=== PATIENT | female | born 1990 | race Caucasian/White ===

== ENCOUNTER 2016-12-30 15:19 | Emergency (ER) | payer MEDICAID ==
[~2016-12-30] VITALS: Ht 157.5 cm; Wt 61.0 kg
[~2016-12-30 15:19] MED LIST: AZIT250T43 PO
[2016-12-30 15:25] VITALS: BP 111/80; PULSE 87; RESP 16; TEMP 98.9; O2SAT 96
--- NOTE | 2016-12-30 16:34 | PD ---
HPI Chief Complaint: Oral / Dental Pain or Problem Time Seen by Provider: 16:28 Travel History International Travel<30 days: No Contact w/Intl Traveler<30days: No Traveled to known affect area: No History of Present Illness HPI 26-year-old female smoker here presents for evaluation of dental pain. Symptoms started 1 week ago. Pain is an aching pain is constant and worse with chewing. Seems to be localized to the mandibular molars on the left and right side. No fevers or chills. No other complaints. PFSH Past Medical History Anemia: Yes Asthma: Yes Blood Disorders: No Cancer: No Cardiovascular Problems: No Chemotherapy: No Diabetes: No Diminished Hearing: No Endocrine: No Genitourinary: No Immune Disorder: No Implanted Vascular Access Dvce: No Musculoskeletal: No Neurologic: No Psychiatric: No Reproductive: No Respiratory: No Immunizations Current: Yes Sickle Cell Disease: No Thyroid Disease: No Tetanus Vaccination: < 5 Years Influenza Vaccination: Yes PNEUMOCCOCAL Vaccine (Year): 2 ?: Unknown LMP: 12/25/16 : 2 Para: 1 Miscarriage: 0 : 0 Past Surgical History Section: Yes Gynecologic Surgery: Yes () Social History Alcohol Use: Yes (SOCIAL) Tobacco Use: Yes (1 ppd) Substance Use: No Allergies-Medications (Allergen,Severity, Reaction): Coded Allergies: Penicillin (Verified Allergy, Severe, rash, 12/30/16) Reported Meds & Prescriptions Reported Meds & Active Scripts Active Peridex Liq (Chlorhexidine Gluconate (Mouth) Liq) 0.12% Soln 15 Ml SWISH-SPIT BID Magic Mouthwash Adult Liq (Multi-Ingredient Mouthwash/Gargle) 120 Ml Susp 10 Ml SWISH-SPIT ACHS Each 5mL contains: Nystatin 200,000units, Diphenhydramine 4.25mg, Viscous Lidocaine 10mg, Greco syrup 0.8 mL Clindamycin (Clindamycin HCl) 300 Mg Cap 300 Mg PO TID 7 Days Azithromycin 250 Mg Tab 250 Mg PO DAILY Review of Systems General / Constitutional: No: Fever, Chills HENT: Positive: Dental Difficulties Physical Exam Narrative GENERAL: Well-nourished female in no acute distress SKIN: Warm and dry. HEAD: Atraumatic. Normocephalic. EYES: Pupils equal and round. No scleral icterus. No injection or drainage. ENT: No nasal bleeding or discharge. Mucous membranes pink and moist. Multilevel dental decay. Tender to palpation along the mandibular gum line. No gingival edema, no facial edema, no sublingual edema, no trismus. NECK: Trachea midline. No JVD. No lymphadenopathy. No submandibular edema. CARDIOVASCULAR: Regular rate and rhythm. No murmur appreciated. RESPIRATORY: No accessory muscle use. Clear to auscultation. Breath sounds equal bilaterally. Data Data Last Documented VS Vital Signs Date Time Temp Pulse Resp B/P Pulse Ox O2 Delivery O2 Flow Rate FiO2 12/30/16 15:25 98.9 87 16 111/80 96 Orders Ed Urine Pregnancytest Poc (12/30/16 16:32) MDM Medical Decision Making Medical Screen Exam Complete: Yes Emergency Medical Condition: Yes Medical Record Reviewed: Yes Interpretation(s) Urine test negative Differential Diagnosis Dental caries, pulpitis, pericoronitis, periodontal abscess Narrative Course Examination reveals dental caries. The patient is encouraged to follow-up with a dentist in the quit smoking. She is allergic her to penicillin. She is being discharged with peridex, Magic mouthwash, clindamycin. Diagnosis Primary Impression: Dental caries Referrals: Dentist Additional Instructions: Follow-up with a dentist. Medication as prescribed. Tylenol or Motrin for discomfort. Quit smoking. Return for any emergent medical conditions. Med/Other Pt SpecificInfo: Prescription(s) given Scripts Chlorhexidine Gluconate (Mouth) Liq (Peridex Liq)0.12% Soln15 Ml SWISH-SPIT BID #473 ML Ref 0 Prov:Yoshi Kaur MD 12/30/16 Pgmkuxrx-Xgbtnmrsdouylgj-Kltzmvcgr Liq (Magic Mouthwash Adult Liq)120 Ml Susp10 Ml SWISH-SPIT ACHS #120 ML Ref 0 Each 5mL contains: Nystatin 200,000units, Diphenhydramine 4.25mg, Viscous Lidocaine 10mg, Greco syrup 0.8 mL Prov:Yoshi Kaur MD 12/30/16 Clindamycin 300 Mg [id number] Mg PO TID 7 Days Ref 0 Prov:Yoshi Kaur MD 12/30/16 Disposition: 01 DISCHARGE HOME Condition: Stable Wilber Andersen Dec 30, 2016 16:34
[2016-12-30] MEDS ORDERED: MAGICADU2 SWISH-SPIT (16:36)
[2016-12-30] MEDS ORDERED: PERI0.126 SWISH-SPIT (16:36)
[2016-12-30] MEDS ORDERED: CLIN1CAP6 PO (16:36)
== END 2016-12-30 16:51 | disposition home or self-care (01) ==
LOC: PHED 15:19
DX: K02.9 Dental caries, unspecified (principal); F17.210 Nicotine dependence, cigarettes, uncomplicated
CPT/HCPCS: 84703; 99282

== ENCOUNTER 2017-09-21 13:55 | Emergency (ER) | payer MEDICAID ==
[~2017-09-21] VITALS: Ht 157.5 cm; Wt 70.0 kg
[~2017-09-21 13:55] MED LIST changes: +CLIN300C5 PO; +MAGICADU2 SWISH-SPIT; +PERI0.126 SWISH-SPIT
[2017-09-21 13:57] VITALS: BP 109/75; PULSE 91; RESP 18; TEMP 98.4; O2SAT 99
--- NOTE | 2017-09-21 16:23 | PD ---
HPI Chief Complaint: Related Problem Time Seen by Provider: 15:23 Travel History International Travel<30 days: No Contact w/Intl Traveler<30days: No Traveled to known affect area: No History of Present Illness HPI Patient is a 27 year old female who presents to ER for blood work to "see how far along in my I am." Patient reports that her first day of her last menstrual cycle was on 07/29/17. Reports that she does not have an REJECTED ITEMS CLERK, and wanted to obtain blood work to confirm and find out about when she is due. Patient denies any abdominal pain or cramping, denies any vaginal bleeding or discharge. Patient with no fever or chills, no other complaints. PFSH Past Medical History Anemia: Yes Asthma: Yes Blood Disorders: No Cancer: No Cardiovascular Problems: No Chemotherapy: No Diabetes: No Diminished Hearing: No Endocrine: No Genitourinary: No Immune Disorder: No Implanted Vascular Access Dvce: No Musculoskeletal: No Neurologic: No Psychiatric: No Reproductive: No Respiratory: No Immunizations Current: Yes Sickle Cell Disease: No Thyroid Disease: No Tetanus Vaccination: Never Vaccinated Influenza Vaccination: No PNEUMOCCOCAL Vaccine (Year): 2 ?: LMP: 07/29/17 : 2 Para: 1 Miscarriage: 0 : 0 Past Surgical History Section: Yes (1 ) Gynecologic Surgery: Yes () Social History Alcohol Use: Yes (4 PACK OF BEER A WEEKEND (NOT NOW WHILE PREGRANT)) Tobacco Use: Yes (1 PACK PER WEEK (STOPPED WHEN FOUND OUT WAS )) Substance Use: No Allergies-Medications (Allergen,Severity, Reaction): Coded Allergies: penicillin G (Unverified Allergy, Severe, rash, 06/10/17) Reported Meds & Prescriptions Reported Meds & Active Scripts Active Peridex Liq (Chlorhexidine Gluconate (Mouth) Liq) 0.12% Soln 15 Ml SWISH-SPIT BID Magic Mouthwash Adult Liq (Multi-Ingredient Mouthwash/Gargle) 120 Ml Susp 10 Ml SWISH-SPIT ACHS Each 5mL contains: Nystatin 200,000units, Diphenhydramine 4.25mg, Viscous Lidocaine 10mg, Greco syrup 0.8 mL Clindamycin (Clindamycin HCl) 300 Mg Cap 300 Mg PO TID 7 Days Azithromycin 250 Mg Tab 250 Mg PO DAILY Review of Systems General / Constitutional: No: Fever Eyes: No: Visual changes HENT: No: Headaches Cardiovascular: No: Chest Pain or Discomfort Respiratory: No: Shortness of Breath Gastrointestinal: No: Abdominal Pain Genitourinary: No: Dysuria Musculoskeletal: No: Pain Skin: No Rash Neurologic: No: Weakness Psychiatric: No: Depression Endocrine: No: Polydipsia Hematologic/Lymphatic: No: Easy Bruising Physical Exam Narrative GENERAL: Well-nourished, well-developed patient. SKIN: Focused skin assessment warm/dry. HEAD: Normocephalic. EYES: No scleral icterus. No injection or drainage. NECK: Supple, trachea midline. No JVD or lymphadenopathy. CARDIOVASCULAR: Regular rate and rhythm without murmurs, gallops, or rubs. RESPIRATORY: Breath sounds equal bilaterally. No accessory muscle use. GASTROINTESTINAL: Abdomen soft, non-tender, nondistended. MUSCULOSKELETAL: No cyanosis, or edema. BACK: Nontender without obvious deformity. No CVA tenderness. Data Data Last Documented VS Vital Signs Date Time Temp Pulse Resp B/P (MAP) Pulse Ox O2 Delivery O2 Flow Rate FiO2 09/21/17 13:57 98.4 91 18 109/75 (86) 99 Orders Orders Beta Hcg (Quant/Titer) (09/21/17 15:14) Ed Discharge Order (09/21/17 17:01) Labs Laboratory Tests Test 09/21/17 16:07 Human Chorionic Gonadotropin, Quant 2684 MIU/ML MDM Medical Decision Making Medical Screen Exam Complete: Yes Emergency Medical Condition: Yes Medical Record Reviewed: Yes Interpretation(s) Vital Signs Date Time Temp Pulse Resp B/P (MAP) Pulse Ox O2 Delivery O2 Flow Rate FiO2 09/21/17 13:57 98.4 91 18 109/75 (86) 99 Differential Diagnosis Narrative Course hcg quant ordered [facility] 07/29/17: Using estimated dates, patient is about 7 weeks and is due on May 05, 2018. Laboratory Tests Test 09/21/17 16:07 Human Chorionic Gonadotropin, Quant 2684 MIU/ML (0-5) Patient instructed to follow up with sales order processor, she will return to ER as needed Diagnosis Primary Impression: Qualified Codes: Z34.90 - Encounter for supervision of normal , unspecified, unspecified trimester Patient Instructions: General Instructions Additional Instructions: Please provide patient with a copy of her lab work at discharge Please follow-up with REJECTED ITEMS CLERK as soon as possible Return to ER as needed Disposition: 01 DISCHARGE HOME Condition: Ami Orozco DO Sep 21, 2017 16:23
[2017-09-21 16:53] LABS: BETA HCG QUANT 2684 MIU/ML (0-5)
== END 2017-09-21 17:14 | disposition home or self-care (01) ==
LOC: NEPD 13:55
DX: Z34.91 Encounter for supervision of normal pregnancy, unspecified, first trimester (principal)
CPT/HCPCS: 84702; 99283

== ENCOUNTER 2017-10-20 16:25 | Emergency (ER) | payer MEDICAID ==
[~2017-10-20] VITALS: Ht 157.5 cm; Wt 73.0 kg
[2017-10-20 16:30] VITALS: BP 119/74; PULSE 87; RESP 16; TEMP 98.4; O2SAT 99
--- NOTE | 2017-10-20 16:50 | PD ---
HPI Chief Complaint: Related Problem Time Seen by Provider: 16:49 Travel History International Travel<30 days: No Contact w/Intl Traveler<30days: No Traveled to known affect area: No History of Present Illness HPI 27-year-old female patient with history of no significant past medical issues, thinks that she is about 6-8 weeks by dates, and had possible test but did not get follow-up with an GRIEF COUNSELLOR, presents to the ER today for 5 days history of pelvic cramping pains and vaginal bleeding. She states that she used 12 pads today. She states that she passed a large clot today and thinks that she may have lost a . She denies any fevers or any other issues. Modifying Factors: None Associated Signs & Symptoms: and vaginal bleeding for 5 days Risk Factors: None PFSH Past Medical History Anemia: Yes Asthma: Yes Blood Disorders: No Cancer: No Cardiovascular Problems: No Chemotherapy: No Diabetes: No Diminished Hearing: No Endocrine: No Genitourinary: No Immune Disorder: No Implanted Vascular Access Dvce: No Musculoskeletal: No Neurologic: No Psychiatric: No Reproductive: No Respiratory: No Immunizations Current: Yes Sickle Cell Disease: No Thyroid Disease: No PNEUMOCCOCAL Vaccine (Year): 2 ?: Unknown LMP: 07/27/17 : 2 Para: 1 Miscarriage: 0 : 0 Past Surgical History Section: Yes (1 ) Gynecologic Surgery: Yes () Social History Alcohol Use: Yes (4 PACK OF BEER A WEEKEND (NOT NOW WHILE PREGRANT)) Tobacco Use: Yes Substance Use: No Allergies-Medications (Allergen,Severity, Reaction): Coded Allergies: penicillin G (Unverified Allergy, Severe, rash, 10/20/17) Reported Meds & Prescriptions Reported Meds & Active Scripts Active No Active Prescriptions or Reported Medications Review of Systems Except as stated in HPI: all other systems reviewed are Neg Physical Exam Narrative GENERAL: Well-developed young female patient currently in mild distress. Awake and oriented 3. SKIN: Focused skin assessment warm/dry. HEAD: Atraumatic. Normocephalic. EYES: Pupils equal and round. No scleral icterus. No injection or drainage. ENT: No nasal bleeding or discharge. Mucous membranes pink and moist. NECK: Trachea midline. No JVD. CARDIOVASCULAR: Regular rate and rhythm. No murmur appreciated. RESPIRATORY: No accessory muscle use. Clear to auscultation. Breath sounds equal bilaterally. GASTROINTESTINAL: Abdomen soft, mild pelvic tenderness without guarding or rebound, nondistended. Hepatic and splenic margins not palpable. GENITOURINARY: Normal external genitalia without lesions or erythema. Vaginal vault with blood but no significant drainage. Cervical os was closed without drainage. No cervical motion tenderness. Uterus nontender. Bilateral adnexa nontender without masses. MUSCULOSKELETAL: No obvious deformities. No clubbing. No cyanosis. No edema. NEUROLOGICAL: Awake and alert. No obvious cranial nerve deficits. Motor grossly within normal limits. Normal speech. PSYCHIATRIC: Appropriate mood and affect; insight and judgment normal. Data Data Last Documented VS Vital Signs Date Time Temp Pulse Resp B/P (MAP) Pulse Ox O2 Delivery O2 Flow Rate FiO2 10/20/17 16:30 98.4 87 16 119/74 (89) 99 Orders Orders Beta Hcg (Quant/Titer) (10/20/17 16:45) Complete Blood Count With Diff (10/20/17 16:45) Comprehensive Metabolic Panel (10/20/17 16:45) Urinalysis - C+S If Indicated (10/20/17 16:45) Urine Culture (10/20/17 16:55) Ed Discharge Order (10/20/17 17:37) Labs Laboratory Tests Test 10/20/17 16:49 10/20/17 16:55 White Blood Count 6.8 TH/MM3 Red Blood Count 4.10 MIL/MM3 Hemoglobin 12.4 GM/DL Hematocrit 37.4 % Mean Corpuscular Volume 91.2 FL Mean Corpuscular Hemoglobin 30.1 PG Mean Corpuscular Hemoglobin Concent 33.0 % Red Cell Distribution Width 13.6 % Platelet Count 306 TH/MM3 Mean Platelet Volume 8.0 FL Neutrophils (%) (Auto) 58.3 % Lymphocytes (%) (Auto) 30.2 % Monocytes (%) (Auto) 7.0 % Eosinophils (%) (Auto) 4.0 % Basophils (%) (Auto) 0.5 % Neutrophils # (Auto) 3.9 TH/MM3 Lymphocytes # (Auto) 2.1 TH/MM3 Monocytes # (Auto) 0.5 TH/MM3 Eosinophils # (Auto) 0.3 TH/MM3 Basophils # (Auto) 0.0 TH/MM3 CBC Comment DIFF FINAL Differential Comment Blood Urea Nitrogen 12 MG/DL Creatinine 0.73 MG/DL Random Glucose 81 MG/DL Total Protein 7.5 GM/DL Albumin 3.6 GM/DL Calcium Level 8.0 MG/DL Alkaline Phosphatase 55 U/L Aspartate Amino Transf (AST/SGOT) 17 U/L Alanine Aminotransferase (ALT/SGPT) 16 U/L Total Bilirubin 0.2 MG/DL Sodium Level 140 MEQ/L Potassium Level 3.9 MEQ/L Chloride Level 107 MEQ/L Carbon Dioxide Level 25.6 MEQ/L Anion Gap 7 MEQ/L Estimat Glomerular Filtration Rate 96 ML/MIN Human Chorionic Gonadotropin, Quant 221 MIU/ML Urine Color KAI Urine Turbidity SLIGHT Urine pH 5.5 Urine Specific [place] 1.029 Urine Protein 100 mg/dL Urine Glucose (UA) NEG mg/dL Urine Ketones TRACE mg/dL Urine Occult Blood LARGE Urine Nitrite NEG Urine Bilirubin NEG Urine Leukocyte Esterase NEG Urine RBC 50-99 /hpf Urine WBC 15-19 /hpf Urine Squamous Epithelial Cells 6-8 /hpf Urine Bacteria FEW /hpf Urine Mucus FEW /lpf Microscopic Urinalysis Comment CULTURE INDICATED MDM Medical Decision Making Medical Screen Exam Complete: Yes Emergency Medical Condition: Yes Medical Record Reviewed: Yes Interpretation(s) Laboratory Tests Test 10/20/17 16:49 10/20/17 16:55 Calcium Level 8.0 MG/DL (8.5-10.1) Human Chorionic Gonadotropin, Quant 221 MIU/ML (0-5) Urine Color KAI (YELLW/STRAW) Urine Protein 100 mg/dL (NEG-TRACE) Urine Ketones TRACE mg/dL (NEG) Urine Occult Blood LARGE (NEG) Urine RBC 50-99 /hpf (0-3) Urine WBC 15-19 /hpf (0-5) Urine Squamous Epithelial Cells 6-8 /hpf (0-5) Urine Bacteria FEW /hpf (NONE) Urine Mucus FEW /lpf (OCC) Differential Diagnosis Threatened AB versus ectopic versus menorrhagia Narrative Course HCG is now 221. She is Rh+. Her last hCG was 1999 last month and at this point , considering the symptoms and the hCG numbers, I suspect that she may have had a spontaneous AB. At this point, her cervix is closed. Her bleeding does not appear to be heavy. I will have her follow-up closely with GRIEF COUNSELLOR within 2 days for reevaluation of beta hCG. Return for any worsening in pain, bleeding, and as needed. Pelvic precautions. The plan has been discussed with her and she states understanding. Diagnosis Primary Impression: Vaginal bleeding affecting early Referrals: Anna Uribe MD 2 days Scripts No Active Prescriptions or Reported Meds Disposition: 01 DISCHARGE HOME Condition: Stable Jordana Thornton MD Oct 20, 2017 16:50
[2017-10-20 17:08] LABS: AUTOMATED NEUTROPHIL # 3.9 TH/MM3 (1.8-7.7); BASOPHIL % 0.5 % (0.0-2.0); EOSINOPHIL # 0.3 TH/MM3 (0-0.4); HEMATOCRIT 37.4 % (35.0-46.0); HEMOGLOBIN 12.4 GM/DL (11.6-15.3); LYMPH % 30.2 % (9.0-44.0); LYMPHOCYTE # 2.1 TH/MM3 (1.0-4.8); MEAN CELL VOLUME 91.2 FL (80.0-100.0); MEAN CORPUSCULAR HEMOGLOBIN 30.1 PG (27.0-34.0); MONOCYTE # 0.5 TH/MM3 (0-0.9); NEUT % 58.3 % (16.0-70.0); PLATELET COUNT 306 TH/MM3 (150-450); RED CELL DISTRIBUTION WIDTH 13.6 % (11.6-17.2); WHITE BLOOD COUNT 6.8 TH/MM3 (4.0-11.0)
[2017-10-20 17:11] LABS: BLOOD, URINE LARGE (NEG); GLUCOSE,URINE NEG (NEG); KETONE, URINE TRACE mg/dL (NEG); NITRITE,URINE NEG (NEG); PH, URINE 5.5 (5.0-8.5); URINE LEUKOCYTE ESTERASE NEG (NEG)
[2017-10-20 17:15] LABS: BILIRUBIN, URINE NEG (NEG)
[2017-10-20 17:17] LABS: URINE COLOR AMBER (YELLW/STRAW)
[2017-10-20 17:18] LABS: CHLORIDE 107 MEQ/L (98-107); SODIUM (NA) 140 MEQ/L (136-145)
[2017-10-20 17:18] LABS: BACTERIA, URINE FEW /hpf; MUCUS URINE FEW /lpf (OCC); WBC, URINE 15-19 /hpf (0-5)
[2017-10-20 17:21] LABS: ALBUMIN 3.6 GM/DL (3.4-5.0); BICARBONATE 25.6 MEQ/L (21.0-32.0); BLOOD UREA NITROGEN 12 MG/DL (7-18); GLUCOSE,RANDOM 81 MG/DL (74-106)
[2017-10-20 17:24] LABS: ALT (GPT) 16 U/L (10-53); AST (GOT) 17 U/L (15-37); CREATININE 0.73 MG/DL (0.50-1.00); GLOMERULAR FILTRATION RATE 96 ML/MIN (>89)
[2017-10-20 17:26] LABS: TOTAL BILIRUBIN ADULT 0.2 MG/DL (0.2-1.0); TOTAL PROTEIN 7.5 GM/DL (6.4-8.2)
[2017-10-20 17:27] LABS: ALKALINE PHOSPHATASE 55 U/L (45-117)
== END 2017-10-20 17:50 | disposition home or self-care (01) ==
LOC: PHED 16:25
DX: O20.9 Hemorrhage in early pregnancy, unspecified (principal); O99.331 Smoking (tobacco) complicating pregnancy, first trimester; J45.909 Unspecified asthma, uncomplicated
CPT/HCPCS: 80053; 81001; 84702; 85025; 87086; 99284

== ENCOUNTER 2017-10-23 09:59 | Emergency (ER) | payer MEDICAID ==
[~2017-10-23] VITALS: Ht 157.5 cm; Wt 72.8 kg
[2017-10-23 10:01] VITALS: BP 127/74; PULSE 77; RESP 16; TEMP 98.6; O2SAT 100
[2017-10-23 10:44] LABS: AUTOMATED NEUTROPHIL # 2.6 TH/MM3 (1.8-7.7); BASOPHIL % 0.7 % (0.0-2.0); EOSINOPHIL # 0.3 TH/MM3 (0-0.4); HEMATOCRIT 37.2 % (35.0-46.0); HEMOGLOBIN 11.8 GM/DL (11.6-15.3); LYMPH % 39.1 % (9.0-44.0); LYMPHOCYTE # 2.1 TH/MM3 (1.0-4.8); MEAN CORPUSCULAR HEMOGLOBIN 29.3 PG (27.0-34.0); MEAN CORPUSCULAR HGB CONC 31.8 % (32.0-36.0); MEAN PLATELET VOLUME 7.6 FL (7.0-11.0); MONO % 7.7 % (0.0-8.0); MONOCYTE # 0.4 TH/MM3 (0-0.9); NEUT % 46.5 % (16.0-70.0); PLATELET COUNT 313 TH/MM3 (150-450); RED BLOOD COUNT 4.04 MIL/MM3 (4.00-5.30); RED CELL DISTRIBUTION WIDTH 13.5 % (11.6-17.2); WHITE BLOOD COUNT 5.4 TH/MM3 (4.0-11.0)
[2017-10-23 11:23] VITALS: BP 104/65; PULSE 74; RESP 16; O2SAT 97
--- NOTE | 2017-10-23 11:25 | PD ---
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 She was seen here 2 days ago with diagnosis of suspected miscarriage. At that time she had a titer of 221. She was told to return in 2 days if she was not able to follow-up with her own doctor. She had some bleeding yesterday but is not bleeding now. She is not having pain. PFSH Past Medical History Anemia: Yes Asthma: Yes Blood Disorders: No Cancer: No Cardiovascular Problems: No Chemotherapy: No Diabetes: No Diminished Hearing: No Endocrine: No Genitourinary: No Immune Disorder: No Implanted Vascular Access Dvce: No Musculoskeletal: No Neurologic: No Psychiatric: No Reproductive: No Respiratory: No Immunizations Current: Yes Sickle Cell Disease: No Thyroid Disease: No PNEUMOCCOCAL Vaccine (Year): 2 ?: Unknown : 2 Para: 1 Miscarriage: 0 : 0 Past Surgical History Section: Yes (1 ) Gynecologic Surgery: Yes () Social History Alcohol Use: Yes (4 PACK OF BEER A WEEKEND (NOT NOW WHILE PREGRANT)) Tobacco Use: Yes (1ppd) Substance Use: No Allergies-Medications (Allergen,Severity, Reaction): Coded Allergies: penicillin G (Unverified Allergy, Severe, rash, 10/23/17) Reported Meds & Prescriptions Reported Meds & Active Scripts Active No Active Prescriptions or Reported Medications Review of Systems General / Constitutional: No: Fever, Chills Eyes: No: Diploplia, Blurred Vision HENT: No: Headaches, Vertigo Cardiovascular: No: Chest Pain or Discomfort Respiratory: No: Cough Gastrointestinal: No: Nausea, Vomiting Genitourinary: Positive: Vaginal Bleeding, No: Urgency, Frequency Musculoskeletal: No: Myalgias, Arthralgias Skin: No Rash, No Itching Neurologic: No: Weakness, Dizziness Physical Exam Narrative GENERAL: Well-developed female SKIN: Focused skin assessment warm/dry. HEAD: Atraumatic. Normocephalic. EYES: Pupils equal and round. No scleral icterus. No injection or drainage. ENT: No nasal bleeding or discharge. Mucous membranes pink and moist. NECK: Trachea midline. No JVD. CARDIOVASCULAR: Regular rate and rhythm. No murmur appreciated. RESPIRATORY: No accessory muscle use. Clear to auscultation. Breath sounds equal bilaterally. GASTROINTESTINAL: Abdomen soft, non-tender, nondistended. Hepatic and splenic margins not palpable. 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 Uterus is not palpably enlarged. There are no adnexal masses MUSCULOSKELETAL: No obvious deformities. No clubbing. No cyanosis. No edema. NEUROLOGICAL: Awake and alert. No obvious cranial nerve deficits. Motor grossly within normal limits. Normal speech. PSYCHIATRIC: Appropriate mood and affect; insight and judgment normal. Data Data Last Documented VS Vital Signs Date Time Temp Pulse Resp B/P (MAP) Pulse Ox O2 Delivery O2 Flow Rate FiO2 10/23/17 10:01 98.6 77 16 127/74 (91) 100 Orders Orders Complete Blood Count With Diff (10/23/17 10:15) Beta Hcg (Quant/Titer) (10/23/17 10:15) Labs Laboratory Tests Test 10/23/17 10:20 White Blood Count 5.4 TH/MM3 Red Blood Count 4.04 MIL/MM3 Hemoglobin 11.8 GM/DL Hematocrit 37.2 % Mean Corpuscular Volume 92.0 FL Mean Corpuscular Hemoglobin 29.3 PG Mean Corpuscular Hemoglobin Concent 31.8 % Red Cell Distribution Width 13.5 % Platelet Count 313 TH/MM3 Mean Platelet Volume 7.6 FL Neutrophils (%) (Auto) 46.5 % Lymphocytes (%) (Auto) 39.1 % Monocytes (%) (Auto) 7.7 % Eosinophils (%) (Auto) 6.0 % Basophils (%) (Auto) 0.7 % Neutrophils # (Auto) 2.6 TH/MM3 Lymphocytes # (Auto) 2.1 TH/MM3 Monocytes # (Auto) 0.4 TH/MM3 Eosinophils # (Auto) 0.3 TH/MM3 Basophils # (Auto) 0.0 TH/MM3 CBC Comment DIFF FINAL Differential Comment Human Chorionic Gonadotropin, Quant 62 MIU/ML [facility] Medical Decision Making Medical Screen Exam Complete: Yes Emergency Medical Condition: Yes Medical Record Reviewed: Yes Differential Diagnosis Differential includes ectopic, incomplete AB Narrative Course Beta titer continues to drop consistent with miscarriage. Her blood type is A+ Diagnosis Primary Impression: Miscarriage Scripts No Active Prescriptions or Reported Meds Disposition: DISCHARGE HOME Condition: Stable Ang Faye MD Oct 23, 2017 11:25
== END 2017-10-23 11:32 | disposition home or self-care (01) ==
LOC: PHED 09:59
DX: O03.9 Complete or unspecified spontaneous abortion without complication (principal); J45.909 Unspecified asthma, uncomplicated; D64.9 Anemia, unspecified; Z72.0 Tobacco use
CPT/HCPCS: 84702; 85025; 99283

== ENCOUNTER 2018-02-15 15:33 | Emergency (ER) | payer MEDICAID ==
[~2018-02-15] VITALS: Ht 157.5 cm; Wt 75.0 kg
[2018-02-15 15:37] VITALS: BP 129/83; PULSE 72; RESP 16; TEMP 98.3; O2SAT 98
--- NOTE | 2018-02-15 16:15 | RADRPT ---
EXAM DATE/TIME: 02/15/2018 15:55 [facility] COMPARISON: No previous studies available for comparison. INDICATIONS : Fell on stairs, right ankle pain MEDICAL HISTORY : None. SURGICAL HISTORY : None. ENCOUNTER: Initial ACUITY: 2 days PAIN SCORE: 10/10 LOCATION: Right ankle FINDINGS: Three view exam was performed of the right ankle. The bony structures are in normal alignment. No e vidence of fracture, dislocation, or soft tissue swelling. The ankle mortise is intact. No radiopaq ue foreign bodies are seen. Bony mineralization is normal. CONCLUSION: Negative exam. No fracture or soft tissue swelling. Anjel Deleon MD on February 15, 2018 at 16:13 Board Certified Radiologist. This report was verified electronically.
--- NOTE | 2018-02-15 16:16 | RADRPT ---
EXAM DATE/TIME: 02/15/2018 15:55 [facility] COMPARISON: No previous studies available for comparison. INDICATIONS : Fell on stairs, right foot pain MEDICAL HISTORY : None. SURGICAL HISTORY : None. ENCOUNTER: Initial ACUITY: 2 days PAIN SCORE: 10/10 LOCATION: Right foot FINDINGS: Three view examination of the right foot demonstrates no soft tissue swelling, dislocation, or fractu re. The tarsal bones appear intact. The interphalangeal and metatarsophalangeal joints are intact. The calcaneus is intact. Bony mineralization is normal. CONCLUSION: Negative exam. No fracture. Anjel Deleon MD on February 15, 2018 at 16:13 Board Certified Radiologist. This report was verified electronically.
--- NOTE | 2018-02-15 16:30 | PD ---
HPI Chief Complaint: Injury Time Seen by Provider: 15:46 Travel History International Travel<30 days: No Contact w/Intl Traveler<30days: No Traveled to known affect area: No History of Present Illness HPI 28-year-old female here with right foot and ankle pain since last night. She reports she was walking down her steps when she slipped twisting the ankle. No head injury loss of consciousness. She iced and elevated the extremity but had persistent pain and difficulty weightbearing today prompting her visit. Denies altered sensation in the foot. Describes pain as constant, throbbing, worse with weightbearing and movement. Slightly relieved with rest and elevation. Symptom severity is moderate. PFSH Past Medical History Anemia: Yes Asthma: Yes Blood Disorders: No Cancer: No Cardiovascular Problems: No Chemotherapy: No Diabetes: No Diminished Hearing: No Endocrine: No Genitourinary: No Immune Disorder: No Implanted Vascular Access Dvce: No Musculoskeletal: No Neurologic: No Psychiatric: No Reproductive: No Respiratory: No Immunizations Current: Yes Sickle Cell Disease: No Thyroid Disease: No PNEUMOCCOCAL Vaccine (Year): 2 ?: Unknown LMP: 12/25/17 : 2 Para: 1 Miscarriage: 0 : 0 Past Surgical History Section: Yes (1 ) Gynecologic Surgery: Yes () Social History Alcohol Use: Yes (OCCASIONAL) Tobacco Use: Yes (1/2PPD) Substance Use: No Allergies-Medications (Allergen,Severity, Reaction): Coded Allergies: penicillin G (Unverified Allergy, Severe, rash, 02/15/18) Reported Meds & Prescriptions Reported Meds & Active Scripts Active No Active Prescriptions or Reported Medications Review of Systems Except as stated in HPI: all other systems reviewed are Neg General / Constitutional: No: Fever Eyes: No: Visual changes HENT: No: Headaches Cardiovascular: No: Chest Pain or Discomfort Respiratory: No: Shortness of Breath Gastrointestinal: No: Abdominal Pain Genitourinary: No: Dysuria Musculoskeletal: No: Pain Skin: No Rash Neurologic: No: Weakness Physical Exam Narrative GENERAL: Alert and well-appearing 28-year-old female SKIN: Warm and dry. HEAD: Normocephalic. Atraumatic EYES: Pupils equal, round, reactive to light. EOMs intact no injection or drainage. NECK: Supple, trachea midline. No cervical midline tenderness CARDIOVASCULAR: Regular rate and rhythm without murmurs, gallops, or rubs. RESPIRATORY: Breath sounds equal bilaterally. No accessory muscle use. GASTROINTESTINAL: Abdomen soft, non-tender, nondistended. MUSCULOSKELETAL: No cyanosis. Right lower extremity: Notable swelling, ecchymosis, tenderness to the lateral malleolus and over the base of the fifth metatarsal. No deformity. Palpable DP pulse. Can freely wiggle the toes. Normal sensation with sharp/dull differentiation. Brisk cap refill. BACK: Nontender without obvious deformity. No CVA tenderness. Data Data Last Documented VS Vital Signs Date Time Temp Pulse Resp B/P (MAP) Pulse Ox O2 Delivery O2 Flow Rate FiO2 02/15/18 15:37 98.3 72 16 129/83 (98) 98 Orders Orders Ankle, Complete ([id number]) (02/15/18 ) Foot, Complete ([id number]) (02/15/18 ) Ed Urine Pregnancytest Poc (02/15/18 15:53) [place] Bandage (02/15/18 16:31) Splint Or Brace Apply/Monitor (02/15/18 16:31) Crutches (02/15/18 16:31) MDM Medical Decision Making Medical Screen Exam Complete: Yes Emergency Medical Condition: Yes Differential Diagnosis Ankle fracture, ankle sprain, foot fracture, midfoot sprain Narrative Course 28 female here with right ankle pain. X-rays negative for fracture. The extremity is neurovascularly intact. [place] wrap, ankle stirrup, crutches supplied. Diagnosis Primary Impression: Ankle sprain Qualified Codes: S93.401A - Sprain of unspecified ligament of right ankle, initial encounter Referrals: Primary Care Physician Additional Instructions: Ice and elevate the extremity. Splint and [place] wrap as directed. Crutches for weightbearing. Pain medication as directed Scripts Ibuprofen (Ibuprofen) 800 Mg Tab 800 MG PO Q6HR Y for PAIN, #40 TAB 0 Refills Prov: Marleny Roman 02/15/18 Disposition: 01 DISCHARGE HOME Condition: Stable Marleny Roman Feb 15, 2018 16:30
[2018-02-15] MEDS ORDERED: IBUP1TAB7 PO (16:33)
== END 2018-02-15 16:53 | disposition home or self-care (01) ==
LOC: PHEFT 15:33
DX: S93.401A Sprain of unspecified ligament of right ankle, initial encounter (principal); F17.200 Nicotine dependence, unspecified, uncomplicated; W10.9XXA Fall (on) (from) unspecified stairs and steps, initial encounter; X50.1XXA Overexertion from prolonged static or awkward postures, initial encounter; Z88.0 Allergy status to penicillin
CPT/HCPCS: 73610; 73630; 84703; 99283; E0113; L1906